=== PATIENT | female | born 1990 | race Caucasian/White ===

== ENCOUNTER 2019-08-13 01:02 | Emergency (ER) | payer OTHER, SELFPAY ==
[2019-08-13 01:05] VITALS: BP 126/74; PULSE 86; RESP 18; TEMP 36.8; O2SAT 96
--- NOTE | 2019-08-13 01:09 | ED.GENADUL_ITS ---
Discharge Plan Disposition Patient Disposition: HOME Condition: Stable Discharge Details Chief Complaint: Abd Prob Clinical Impression: Hypoglycemia Primary Care Provider: Patricia,Local ED Provider: Jairo Recinos Home Meds and New Rx's Prescriptions: New ondansetron 4 mg tablet,disintegrating 4 mg PO Q8H PRN (Reason: nausea and vomiting) Qty: 14 RF: 0 Continued bupropion HCl [Wellbutrin SR] 100 mg Tablet Sustained-Release 12 Hr 100 mg PO DAILY RF: 0 pantoprazole 20 mg Tablet,Delayed Release (Dr/Ec) 20 mg PO DAILY RF: 0 metoprolol succinate 25 mg Tablet Extended Release 24 Hr 25 mg PO DAILY RF: 0 Discharge Instructions Instructions: Non-diabetic Hypoglycemia (ED) Additional Instructions: follow up with your primary care provider within 1-2 weeks if you feel you are becoming more ill, have worsening weakness or difficulty breathing return to the emergency department Medical Decision Making 29 yo female who states she has a hx of hypolgycemia that her providers in [place] feel 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 She states she had been feeling well all day when she started to have nausea, feel shaky and states that this is her normal symptoms when her sugars are low. She checked her blood sugars and it was below 50, tried to eat then had vomit. She was able to keep some food down after this but still felt a little shaky per pt so came here. She denies abdominal pain, fevers, chest pain. She arrives in no distress speaking clearly and steady gait. Her blood sugar here is 150 so I susepct she is feeling better from having her blood glucose higher. Will po challenege here. Given lack of other symptoms and documented low blood sugar at home do not feel further workup at this time indicated pt doing well, eating without any n/v and feels well enough to go home and doesn't want to stay for observation for a few horus. I feel this is reasonable given she had no hypoglycemia here that required correction. ADvised f/u with pcp and return precautions given Differential Diagnosis Differential Diagnosis: hypoglycemia, insulinoma HPI General Mode of arrival: ambulatory . Date/Time Provider Initiated Documentation: 08/13/19 01:03 . Limitations to Documentation: no limitations . Information obtained by: patient . History of Present Illness 29 year old F presents to the emergency department with the chief complaint of shaky, described as moderate, Patient started experiencing this hour(s) (1) and it has been other (improving). No relieving factors improve symptom(s), No exacerbating factors reported . Patient did receive the following treatments prior to arrival, none Related Data Home Medications Medication Instructions Recorded Confirmed bupropion HCl [Wellbutrin SR] 100 mg PO DAILY 08/13/19 08/13/19 metoprolol succinate 25 mg PO DAILY 08/13/19 08/13/19 ondansetron 4 mg PO Q8H PRN #14 tab 08/13/19 pantoprazole 20 mg PO DAILY 08/13/19 08/13/19 Previous Rx's Medication Instructions Recorded ondansetron 4 mg PO Q8H PRN #14 tab 08/13/19 Allergies Allergy/AdvReac Type Severity Reaction Status Date / Time vancomycin Allergy Severe Anaphylaxsi Unverified 08/13/19 01:10 s Penicillins Allergy Intermediate Hives Unverified 08/13/19 01:10 Review of Systems Review of Systems ROS Unobtainable: All systems reviewed & are unremarkable except as noted in HPI and below Constitutional Constitutional: Denies chills, Denies fever(s) and Denies weakness Cardiovascular Cardiovascular: Denies chest pain and Denies dyspnea Respiratory Respiratory: Denies dyspnea Gastrointestinal Gastrointestinal: Denies abdominal pain, Denies nausea and Denies vomiting Genitourinary Genitourinary: Denies dysuria Musculoskeletal Musculoskeletal: Denies joint swelling Integumentary/Breasts Skin/Breast: Denies rash Neurologic Neurologic: Denies weakness [facility] Social History Smoking/Tobacco Use Status: Never Alcohol Intake: never Drug use: Never Substance use type: does not use Do you feel safe at home: Yes Do you feel safe in your relationship?: Yes Exam Const General: no acute distress Orientation: alert HENMT Head: normal to inspection Ears: external ears normal General nose exam: external nose normal Mouth: moist mucous membranes Eyes General: appearance normal, both eyes and all related structures Neck Neck: normal visual inspection Resp Effort & Inspection: normal respiratory effort and able to speak in complete sentences Cardio Rate: regular rate GI Palpation: soft Skin General skin exam: no rashes or lesions noted Neuro General: alert and oriented x3 Extrem General: normal to inspection Psych Mental Status: mental status grossly normal
[2019-08-13] MEDS: Ondansetron O.D.T. 4 MG TABEF (01:14)
== END 2019-08-13 01:45 | disposition home or self-care (01) ==
PROVIDERS: Emergency Provider Emergency Medicine
DX: E16.2 Hypoglycemia, unspecified (principal)
CPT/HCPCS: 36416; 82962; 99283